=== PATIENT | female | born 2000 | race Two or more races ===

== ENCOUNTER 2024-02-13 23:24 | Emergency (ER) | payer MEDICARE ==
[~2024-02-13] VITALS: Ht 152.4 cm; Wt 83.9 kg
[2024-02-13 23:35] VITALS: PULSE 78; RESP 18; TEMP 98.6
[2024-02-14] MEDS ORDERED: AMOXICILLIN500 MG PO (02:16)
[2024-02-14 02:29] VITALS: BP 130/93; PULSE 67; RESP 17; TEMP 98.3; O2SAT 98
== END 2024-02-14 02:15 | disposition home or self-care (01) ==
LOC: FSED 23:33
DX: R09.81 Nasal congestion (principal); J02.0 Streptococcal pharyngitis; Z11.52 Encounter for screening for COVID-19
CPT/HCPCS: 0223U; 83518; 87400; 99283